=== PATIENT | female | born 1980 | race Caucasian/White ===

== ENCOUNTER 2016-12-10 14:33 | Emergency (ER) | payer OTHER ==
--- NOTE | 2016-12-10 15:28 | ER Document Report ---
ED General - General Chief Complaint: General Weakness Stated Complaint: GENERAL WEAKNESS Time Seen by Provider: 12/10/16 15:25 Mode of Arrival: Ambulatory Information source: Patient Notes: 36-year-old female who complains about a sensation of slurred speech diaphoresis nausea and tremors and right hand that occurred few hours after eating and occur 3-4 times a week. This is been going on since July and it become worse since she became . She reports currently 19 weeks and has not seen physician for this before. Is following for [facility]. She is status post gastric bypass surgery 2014 and has not been since then. She reports her symptoms are better now after the most recent episode beginning about 2 hours ago. She reports she's tried to eat during the symptoms but she does not think that eating makes them better. Physical Exam: General: Alert, appears well. HEENT: Normocephalic. Atraumatic. PERRLA. Extraocular movements intact. Oropharynx clear. Neck: Supple. Non-tender. Respiratory: No respiratory distress. Clear and equal breath sounds bilaterally. Cardiovascular: Regular rate and rhythm. Abdominal: Normal Inspection. Soft, non-tender. No distension. Normal Bowel Sounds. Back: Non-tender. No deformity or step off. Extremities warm to plus pulses of cyanosis no edema Neurological: Cranial nerves III-XII grossly intact bilaterally. Strength 5/5 throughout. Sensation intact to light touch. Normal cognition. AAOx4. Normal speech. Cerebellar function intact by finger to nose test bilaterally Psychological: Normal affect. Normal Mood. Skin: Warm. Dry. Normal color. TRAVEL OUTSIDE OF THE [place] IN LAST 30 DAYS: No - Related Data Allergies/Adverse Reactions: amoxicillin [Amoxicillin] Allergy (Verified 08/19/15 00:18) bee pollen [Bee Pollen] Allergy (Verified 08/19/15 00:18) guaifenesin [From Mucinex] Allergy (Verified 08/19/15 00:18) adhesive [Adhesive] Adverse Reaction (Verified 08/19/15 00:18) Generalized rash Past Medical History - Social History Smoking Status: Never Smoker Family History: CVA - Mother, DM - Father, Hypertension Patient has suicidal ideation: No Patient has homicidal ideation: No - Past Medical History Cardiac Medical History: Reports: Hx Hypertension - NO MEDS SINCE GASTRIC BY PASS Pulmonary Medical History: Reports: Hx Asthma Neurological Medical History: Reports: Hx Migraine Endocrine Medical History: Reports: Hx Hypothyroidism Renal/ Medical History: Denies: Hx Peritoneal Dialysis Psychiatric Medical History: Reports: Hx Depression Past Surgical History: Reports: Hx Section - 2014, Hx Gastric Bypass Surgery, Hx Tonsillectomy - Immunizations Hx Diphtheria, Pertussis, Tetanus Vaccination: Yes Review of Systems - Review of Systems Constitutional: denies: Chills, Fever EENT: denies: Ear pain, Throat pain Cardiovascular: Lightheaded. denies: Chest pain Respiratory: denies: Cough, Short of breath Gastrointestinal: denies: Abdominal pain, Diarrhea, Blood in vomit, Black stools Genitourinary: denies: Burning, Dysuria Female Genitourinary: Musculoskeletal: denies: Back pain, Leg swelling Skin: denies: Rash Hematologic/Lymphatic: denies: Swollen glands Neurological/Psychological: See HPI Course - Re-evaluation Re-evalutation: 12/10/16 18:01 Reevaluation shows patient feeling well with no further symptoms. Her description of symptoms certainly suggest a postprandial hypoglycemia I do not find any more serious etiology of her workup here. I asked her to eat small frequent meals and see if this makes a difference in her symptoms. She'll follow with her CHIEF TECHNICIAN X RAY in [facility] next week for recheck - Laboratory Result Diagrams: 12/10/16 15:35 12/10/16 15:35 Laboratory results interpreted by me: 12/10/16 12/10/16 15:35 15:35 RBC 3.66 L Hgb 11.3 L Hct 33.3 L Sodium 136.4 L Creatinine 0.50 L Albumin 3.4 L - Diagnostic Test Radiology reviewed: Reports reviewed - EKG Interpretation by Me Additional EKG results interpreted by me: 12/10/16 17:32 EKG reviewed by myself sinus rhythm at 70 no acute changes Discharge - Discharge Clinical Impression: Postprandial hypoglycemia Condition: Stable Disposition: HOME, SELF-CARE Additional Instructions: Hypoglycemia You have suffered an episode of hypoglycemia (low blood sugar). Typical symptoms of hypoglycemia are shaking, sweating, headache, and confusion. When severe, unconsciousness or seizure may occur. Hypoglycemia occurs when a person taking insulin or diabetes pills has a change in the amount of blood sugar available -- due to exercise, decreased food intake, or alcohol. Should you feel symptoms of hypoglycemia again, immediately take some form of sugar such as sweetened juice. As the reaction subsides, eat a complex carbohydrate such as bread. If possible, check your blood sugar using a chemical strip. If episodes are occurring without obvious explanation, contact your physician for further evaluation.Follow-up with your CHIEF TECHNICIAN X RAY in [facility] next week for recheck. Return to emergency department for any problems Forms: Return to Work
[2016-12-10 15:55] LABS: ABSOLUTE EOSINOPHILS # (AUTO) 0.5 10^3/uL (0.0-0.6); ABSOLUTE LYMPHOCYTES (AUTO) 1.3 10^3/uL (0.5-4.7); ABSOLUTE MONOCYTES (AUTO) 0.7 10^3/uL (0.1-1.4); ABSOLUTE NEUT (AUTO) 7.1 10^3/uL (1.7-8.2); BASOPHILS % (AUTO) 0.3 % (0-2); EOSINOPHILS % (AUTO) 4.9 % (0-6); HEMATOCRIT 33.3 % (36.0-47.0); HEMOGLOBIN 11.3 g/dL (12.0-15.5); HGB HCT DIFFERENCE 0.6; LYMPHOCYTES % (AUTO) 13.4 % (13-45); MEAN CORPUSCULAR HEMOGLOBIN 30.9 pg (27.0-33.4); MEAN CORPUSCULAR VOLUME 91 fl (80-97); MONOCYTES % (AUTO) 6.9 % (3-13); RED BLOOD COUNT 3.66 10^6/uL (3.72-5.28); RED CELL DISTRIBUTION WIDTH 13.8 % (11.5-14.0); SEGMENTED NEUTROPHILS % (AUTO) 74.5 % (42-78); WHITE BLOOD COUNT 9.5 10^3/uL (4.0-10.5)
[2016-12-10 16:12] LABS: ALANINE AMINOTRANSFERASE 21 U/L (9-52); ALBUMIN 3.4 g/dL (3.5-5.0); ALKALINE PHOSPHATASE 52 U/L (38-126); ANION GAP 5 (5-19); ASPARTATE AMINO TRANSFERASE 14 U/L (14-36); BILIRUBIN,DIRECT 0.3 mg/dL (0.0-0.4); BILIRUBIN,TOTAL 0.5 mg/dL (0.2-1.3); BLOOD UREA NITROGEN 12 mg/dL (7-20); CARBON DIOXIDE 26 mmol/L (22-30); CHLORIDE 105 mmol/L (98-107); GLUCOSE 78 mg/dL (75-110); POTASSIUM 4.3 mmol/L (3.6-5.0); SODIUM 136.4 mmol/L (137-145); TOTAL PROTEIN 6.5 g/dL (6.3-8.2)
[2016-12-10 18:08] VITALS: BP 107/69
--- NOTE | 2016-12-10 23:34 | EKG REPORT ---
SEVERITY:- NORMAL ECG - SINUS RHYTHM : Confirmed by: Maribell Sanchez 10-Dec-2016 23:33:11
== END 2016-12-10 18:08 | disposition home or self-care (01) ==
LOC: ER 14:33
DX: O99.282 Endocrine, nutritional and metabolic diseases complicating pregnancy, second trimester (principal); E16.1 Other hypoglycemia; O26.892 Other specified pregnancy related conditions, second trimester; R47.81 Slurred speech; R61 Generalized hyperhidrosis; R42 Dizziness and giddiness; R11.0 Nausea; R25.1 Tremor, unspecified; O99.512 Diseases of the respiratory system complicating pregnancy, second trimester; J45.909 Unspecified asthma, uncomplicated; Z3A.19 19 weeks gestation of pregnancy; Z88.0 Allergy status to penicillin; Z91.030 Bee allergy status; Z88.8 Allergy status to other drugs, medicaments and biological substances; Z82.3 Family history of stroke
CPT/HCPCS: 36415; 70450; 80053; 85025; 93005; 93010; 99285

== ENCOUNTER 2017-03-15 18:01 | Emergency (ER) | payer OTHER ==
--- NOTE | 2017-03-15 18:41 | ER Document Report ---
ED Medical Screen (RME) - General Chief Complaint: Shortness Of Breath Stated Complaint: SHORTNESS OF BREATH Time Seen by Provider: 03/15/17 18:39 Mode of Arrival: Wheelchair Information source: Patient TRAVEL OUTSIDE OF THE [place] IN LAST 30 DAYS: No - HPI Patient complains to provider of: SOB Onset: Yesterday - pt is approx 33 weeks and has had SOB for the past 2 days with exacerbation today. Called OB and was told to get evaluated - Related Data Allergies/Adverse Reactions: amoxicillin [Amoxicillin] Allergy (Verified 08/19/15 00:18) bee pollen [Bee Pollen] Allergy (Verified 08/19/15 00:18) guaifenesin [From Mucinex] Allergy (Verified 08/19/15 00:18) adhesive [Adhesive] Adverse Reaction (Verified 08/19/15 00:18) Generalized rash Past Medical History - Past Medical History Cardiac Medical History: Reports: Hx Hypertension - NO MEDS SINCE GASTRIC BY PASS Pulmonary Medical History: Reports: Hx Asthma Neurological Medical History: Reports: Hx Migraine Endocrine Medical History: Reports: Hx Hypothyroidism Renal/ Medical History: Denies: Hx Peritoneal Dialysis Psychiatric Medical History: Reports: Hx Depression Past Surgical History: Reports: Hx Section - 2013, Hx Gastric Bypass Surgery, Hx Tonsillectomy - Immunizations Hx Diphtheria, Pertussis, Tetanus Vaccination: Yes Physical Exam - Vital signs Vitals: Temp Pulse Resp BP Pulse Ox 98.5 F 93 20 119/69 98 03/15/17 18:08 03/15/17 18:08 03/15/17 18:08 03/15/17 18:08 03/15/17 18:08 Course - Vital Signs Vital signs: Temp Pulse Resp BP Pulse Ox 98.5 F 93 20 119/69 98 03/15/17 18:08 03/15/17 18:08 03/15/17 18:08 03/15/17 18:08 03/15/17 18:08
[2017-03-15 19:02] LABS: ABSOLUTE EOSINOPHILS # (AUTO) 0.3 10^3/uL (0.0-0.6); ABSOLUTE LYMPHOCYTES (AUTO) 1.6 10^3/uL (0.5-4.7); ABSOLUTE MONOCYTES (AUTO) 0.6 10^3/uL (0.1-1.4); ABSOLUTE NEUT (AUTO) 6.4 10^3/uL (1.7-8.2); BASOPHILS % (AUTO) 0.4 % (0-2); EOSINOPHILS % (AUTO) 3.8 % (0-6); HEMATOCRIT 32.7 % (36.0-47.0); HEMOGLOBIN 11.1 g/dL (12.0-15.5); HGB HCT DIFFERENCE 0.6; LYMPHOCYTES % (AUTO) 17.7 % (13-45); MEAN CORPUSCULAR HEMOGLOBIN 30.7 pg (27.0-33.4); MEAN CORPUSCULAR VOLUME 90 fl (80-97); MONOCYTES % (AUTO) 6.3 % (3-13); RED BLOOD COUNT 3.62 10^6/uL (3.72-5.28); RED CELL DISTRIBUTION WIDTH 14.1 % (11.5-14.0); SEGMENTED NEUTROPHILS % (AUTO) 71.8 % (42-78); WHITE BLOOD COUNT 8.9 10^3/uL (4.0-10.5)
[2017-03-15 19:13] LABS: ALANINE AMINOTRANSFERASE 26 U/L (9-52); ALBUMIN 3.4 g/dL (3.5-5.0); ALKALINE PHOSPHATASE 74 U/L (38-126); ANION GAP 8 (5-19); ASPARTATE AMINO TRANSFERASE 16 U/L (14-36); BILIRUBIN,DIRECT 0.3 mg/dL (0.0-0.4); BILIRUBIN,TOTAL 0.5 mg/dL (0.2-1.3); BLOOD UREA NITROGEN 11 mg/dL (7-20); CALCIUM 9.2 mg/dL (8.4-10.2); CARBON DIOXIDE 24 mmol/L (22-30); CHLORIDE 103 mmol/L (98-107); CREATININE RESULT 0.58 mg/dL (0.52-1.25); GLUCOSE 88 mg/dL (75-110); SODIUM 134.8 mmol/L (137-145); TOTAL PROTEIN 6.7 g/dL (6.3-8.2)
[2017-03-15] MEDS ORDERED: ALBUTEROL SULFATE 0.083% NEB 2.5 MG/3 ML AMPUL NEB ONE (19:54)
--- NOTE | 2017-03-15 19:56 | ER Document Report ---
ED Respiratory Problem - General Chief Complaint: Shortness Of Breath Stated Complaint: SHORTNESS OF BREATH Time Seen by Provider: 03/15/17 18:39 Mode of Arrival: Wheelchair Information source: Patient Notes: Patient is a 36-year-old at approximately 33 weeks who presents to the ER today for 2 days of shortness of breath. 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 She denies any history of asthma or COPD, smoking. She denies wheezing or cough.She denies any chest pain, she also complains of congestion behind her ears. She denies any history of blood clots or recent surgery. She denies any recent travel. She states that she is not sedentary, constantly chasing a 3-year-old daughter around. TRAVEL OUTSIDE OF THE [place] IN LAST 30 DAYS: No - Related Data Allergies/Adverse Reactions: amoxicillin [Amoxicillin] Allergy (Verified 03/15/17 19:12) bee pollen [Bee Pollen] Allergy (Verified 03/15/17 19:12) guaifenesin [From Mucinex] Allergy (Verified 03/15/17 19:12) adhesive [Adhesive] Adverse Reaction (Verified 03/15/17 19:12) Generalized rash Home Medications: Current Home Medications Zolpidem Tartrate 5 mg PO QHS PRN 03/15/17 [History] Past Medical History - General Information source: Patient - Social History Smoking Status: Never Smoker Chew tobacco use (# tins/day): No Frequency of alcohol use: None Drug Abuse: None Family History: CVA - Mother, DM - Father, Hypertension - Past Medical History Cardiac Medical History: Reports: Hx Hypertension - NO MEDS SINCE GASTRIC BY PASS Pulmonary Medical History: Reports: Hx Asthma Neurological Medical History: Reports: Hx Migraine Endocrine Medical History: Reports: Hx Hypothyroidism Renal/ Medical History: Denies: Hx Peritoneal Dialysis Psychiatric Medical History: Reports: Hx Depression Past Surgical History: Reports: Hx Section - 2013, Hx Gastric Bypass Surgery, Hx Tonsillectomy - Immunizations Hx Diphtheria, Pertussis, Tetanus Vaccination: Yes Review of Systems - Review of Systems Constitutional: No symptoms reported EENT: See HPI Cardiovascular: No symptoms reported Respiratory: See HPI Gastrointestinal: No symptoms reported Genitourinary: No symptoms reported Female Genitourinary: No symptoms reported Musculoskeletal: No symptoms reported Skin: No symptoms reported Hematologic/Lymphatic: No symptoms reported Neurological/Psychological: No symptoms reported Physical Exam - Vital signs Vitals: Temp Pulse Resp BP Pulse Ox 98.5 F 93 20 119/69 98 03/15/17 18:08 03/15/17 18:08 03/15/17 18:08 03/15/17 18:08 03/15/17 18:08 - Notes Notes: PHYSICAL EXAMINATION: GENERAL: Well-appearing and in no acute distress. HEAD: Atraumatic, normocephalic. EYES: Pupils equal round and reactive to light, extraocular movements intact, sclera anicteric, conjunctiva are normal. ENT: ear canals without erythema or foreign body, TMs pearly jorge with good bony landmarks but with fluid behind bilaterally, nares patent, oropharynx clear without exudates. Moist mucous membranes. NECK: Normal range of motion, supple without lymphadenopathy LUNGS: CTAB and equal. No wheezes rales or rhonchi. HEART: Regular rate and rhythm without murmurs ABDOMEN: gravid abdomen, Soft, no tenderness. No guarding, no rebound BACK: no vertebral tenderness, normal ROM GI/: no CVA tenderness EXTREMITIES: Normal range of motion, no pitting edema. No cyanosis. NEUROLOGICAL: Cranial nerves grossly intact. Normal sensory/motor exams. PSYCH: Normal mood, normal affect. SKIN: Warm, Dry, normal turgor, no rashes or lesions noted Course - Re-evaluation Re-evalutation: 03/15/17 21:03 d dimer was ordered in triage, pt is so of course the d dimer is elevated. I spoke extensively with the patient about risks that give her possibility of PE and she declines CTA of the chest, stating that she thinks "it 's just a cold" and "my baby is probably pushing up on my diaphragm" and would rather do a breathing treatment and zyrtec. She has close follow up with her obgyn tomorrow and will keep a close eye on her symptoms. She does not have chest pain and the breathing treatment here helped. She is not tachycardic here. She was sent home with albuterol inhaler here. We talked about the CTA for more than 25 mins in total today, and it was offered but after lengthy discussion she still declined it today. - Vital Signs Vital signs: Temp Pulse Resp BP Pulse Ox 98.5 F 93 20 119/69 98 03/15/17 18:08 03/15/17 18:08 03/15/17 18:08 03/15/17 18:08 03/15/17 18:08 - Laboratory Result Diagrams: 03/15/17 18:47 03/15/17 18:47 Laboratory results interpreted by me: 03/15/17 03/15/17 03/15/17 18:47 18:47 18:47 RBC 3.62 L Hgb 11.1 L Hct 32.7 L RDW 14.1 H D-Dimer 1.06 H Sodium 134.8 L Albumin 3.4 L Discharge - Discharge Clinical Impression: Shortness of breath URI (upper respiratory infection) Qualifiers: URI type: acute nasopharyngitis (common cold) Qualified Code(s): J00 - Acute nasopharyngitis [common cold] Condition: Stable Disposition: HOME, SELF-CARE Instructions: Upper Respiratory Illness ([facility]) Additional Instructions: Return immediately for any new or worsening symptoms. Follow up with primary care provider, call tomorrow to make followup appointment. Prescriptions: Cetirizine HCl [Zyrtec 10 mg Tablet] 1 tab PO DAILY #30 tablet
[2017-03-15] MEDS ORDERED: CETIRIZINE 10 MG TABLET PO ONE (20:21)
[2017-03-15] MEDS ORDERED: ALBUTEROL SULFATE HFA (90 MCG/PUFF) 8 GM MDI (1 MDI/ER DISP) IH PRN (21:00)
[2017-03-15 21:25] VITALS: BP 119/69
== END 2017-03-15 21:25 | disposition home or self-care (01) ==
LOC: ER 18:01
DX: O26.899 Other specified pregnancy related conditions, unspecified trimester (principal); R06.02 Shortness of breath; O99.519 Diseases of the respiratory system complicating pregnancy, unspecified trimester; J00 Acute nasopharyngitis [common cold]; O99.840 Bariatric surgery status complicating pregnancy, unspecified trimester; Z3A.00 Weeks of gestation of pregnancy not specified; Z91.81 History of falling; Z88.0 Allergy status to penicillin; Z91.030 Bee allergy status; Z88.8 Allergy status to other drugs, medicaments and biological substances
CPT/HCPCS: 94640; 99285; 36415; 85025; 80053; 85379; J3490